=== PATIENT | male | born 1970 | race African-American/Black ===

== ENCOUNTER 2020-07-27 07:25 | Day surgery (SDC) | payer OTHER ==
[~2020-07-27] VITALS: Ht 172.7 cm; Wt 138.1 kg
[2020-07-27 08:17] VITALS: BP 138/54
[2020-07-27 12:37] VITALS: BP 141/82
== END 2020-07-27 12:45 | disposition home or self-care (01) ==
LOC: GI 07:25 → OR 10:00 → GI 10:00
PROVIDERS: ATTEND Internal Medicine Gastroenterology
DX: Z12.11 Encounter for screening for malignant neoplasm of colon (principal); K57.30 Diverticulosis of large intestine without perforation or abscess without bleeding; R60.9 Edema, unspecified; Z79.82 Long term (current) use of aspirin; Z80.0 Family history of malignant neoplasm of digestive organs
CPT/HCPCS: 45378; J1200; J1610; J2250; J2310; J3010; J3490